=== PATIENT | male | born 1965 | race African-American/Black ===

== ENCOUNTER 2018-02-21 11:44 | Emergency (ER) | payer SELFPAY ==
[~2018-02-21] VITALS: Ht 180.3 cm; Wt 172.4 kg
[2018-02-21] MEDS ORDERED: Bactrim Ds Tab1 EACH PO (12:22)
[2018-02-21] MEDS ORDERED: CEPH500 PO (12:22)
== END 2018-02-21 12:39 | disposition home or self-care (01) ==
LOC: ER 11:44
DX: L02.214 Cutaneous abscess of groin (principal)
CPT/HCPCS: 10060; 99282-25